=== PATIENT | male | born 1960 | race Caucasian/White ===

== ENCOUNTER 2018-03-19 10:03 | Outpatient (CLI) | payer BC ==
[2018-03-19 11:52] LABS: #Basophils 0.1 thou/uL (0.0-0.2); #Eosinphils 0.3 thou/uL (0.0-0.7); #Lymphocytes 1.5 thou/uL (1.20-3.40); #Monocytes 0.5 thou/uL (0.11-0.59); #Neutrophils 6.1 thou/uL (1.40-6.50); %Basophils 0.8 % (0.0-1.0); %Eosinophils 3.2 % (0.0-10.0); %Lymphocytes 17.9 % (21.0-51.0); %Monocytes 5.7 % (0.0-10.0); %Neutrophils 72.4 % (42.0-75.0); Hemoglobin 16.4 g/dL (14.0-18.0); Mean Corpuscular HGB CONC 33.4 g/dL (32.0-36.0); Mean Corpuscular Hemoglobin 30.8 pg (27.0-31.0); Mean Corpuscular Volume 92.3 fL (78.0-98.0); Mean Platelet Volume 7.6 fL (7.4-10.4); Platelet Count 485 thou/uL (130-400); RBC Distribution Width 12.5 % (11.5-14.5); Red Blood Cell (RBC) Count 5.33 mill/uL (4.70-6.10); White Blood Cell (WBC) Count 8.5 thou/uL (4.8-10.8)
[2018-03-19 11:54] LABS: Bilirubin Negative (Negative); Blood, Urine Negative (Negative); Clarity CLEAR (Clear); Glucose, Urine (Dipstick) Negative (Negative); Leukocyte Trace (Negative); Nitrite Negative (Negative); Protein, Urine (Dipstick) Negative (Neg-Trace); Specific Gravity, Urine 1.015 (1.002-1.036); pH, Urine 6.5 (5.0-9.0)
[2018-03-19 11:55] LABS: PTT 30.4 SEC (22.9-36.1); Prothrombin Time 13.6 SEC (12.0-14.7)
[2018-03-19 11:57] LABS: Bacteria/HPF None Seen HPF (None Seen); Hyaline Casts/LPF 0-3 HYALINE CAST LPF (0-3 Hyaline); Pathc Cast-AUWi Flag 0.14 (0-2.49); RBC/HPF 0-3 HPF (0-3); Squamous Epithelial None Seen HPF (0-3); WBC/HPF 0-3 HPF (0-3)
[2018-03-19 12:06] LABS: Anion Gap 11 mmol/L (10-20); BUN (Urea Nitrogen) 11 mg/dL (8.4-25.7); Calc. Creatinine Clearance 0 mL/min (70-130); Calcium 9.5 mg/dL (7.8-10.44); Carbon Dioxide 24 mmol/L (22-29); Chloride 107 mmol/L (98-107); Estimated GFR-MDRD 73; Glucose 87 mg/dL (70-105); Potassium 4.4 mmol/L (3.5-5.1); Sodium 138 mmol/L (136-145)
== END 2018-03-19 10:04 | disposition home or self-care (01) ==
LOC: LABBT 10:03
PROVIDERS: ATTEND Urology
DX: Z01.818 Encounter for other preprocedural examination (principal); N40.1 Benign prostatic hyperplasia with lower urinary tract symptoms
CPT/HCPCS: 80048; 81001; 85025; 85610; 85730; 87086; 93005; 93010

== ENCOUNTER 2018-03-27 12:15 | Observation (INO) | payer BC ==
[2018-03-27] MEDS ORDERED: Levofloxacin 500 mg/D5W 100 ml Premix Bag ONE (12:43)
[2018-03-27] MEDS ORDERED: Midazolam HCl 2 mg/2 ml Vial ONE ×3 (13:32→16:30)
[2018-03-27] MEDS ORDERED: Fentanyl 100 MCG/2 ML VIAL ONE ×2 (16:17→18:22)
[2018-03-27] MEDS ORDERED: Ondansetron PF 4 MG/2 ML Vial ONE (17:16)
[2018-03-27] MEDS ORDERED: ePHEDrine/0.9% NaCl/PF SYRINGE 50 mg/10 ml ONE (17:16)
[2018-03-27] MEDS ORDERED: PROPOFOL 200 MG/20 ML VIAL ONE (17:16)
[2018-03-27] MEDS ORDERED: Dexamethasone 20 MG/5 ML VIAL ONE (17:16)
[2018-03-27] MEDS ORDERED: B & O ONE (17:55)
[2018-03-27] MEDS ORDERED: Ondansetron PF 4 MG/2 ML Vial IVP PRN (18:02)
[2018-03-27] MEDS ORDERED: hydrALAZINE 20 MG/ML VIAL SLOW IVP PRN (18:02)
[2018-03-27] MEDS ORDERED: Acetaminophen 500 MG TAB PO PRN (18:02)
[2018-03-27] MEDS ORDERED: Morphine 2 MG/ML SYRINGE SLOW IVP PRN (18:02)
[2018-03-27] MEDS ORDERED: Oxybutynin 5 MG TAB PO PRN (18:02)
[2018-03-27] MEDS ORDERED: diphenhydrAMINE 25 MG CAP PO PRN (18:02)
[2018-03-27] MEDS ORDERED: Mag-Al 1200 mg/1200 mg/30 ML UDCUP PO PRN (18:02)
[2018-03-27] MEDS ORDERED: Zolpidem Tartrate 5 MG TAB PO PRN (18:02)
[2018-03-27] MEDS ORDERED: Hyoscyamine Sulfate SL 0.125 mg Tablet SL PRN (18:02)
[2018-03-27] MEDS ORDERED: Bisacodyl 10 MG SUPP PR PRN (18:02)
[2018-03-27] MEDS ORDERED: Promethazine HCl 25 MG/ML VIAL IM PRN (18:17)
[2018-03-27] MEDS ORDERED: Ondansetron HCl/PF 4 MG/2 ML Vial IVP PRN (18:17)
[2018-03-27] MEDS ORDERED: Promethazine HCl 25 MG/ML VIAL SLOW IVP PRN (18:17)
[2018-03-27] MEDS ORDERED: Atorvastatin Calcium 40 MG TAB PO SCH (21:00)
[2018-03-27] MEDS ORDERED: Lisinopril 20 MG TAB PO SCH (21:00)
[2018-03-27] MEDS: Docusate 100 MG CAP PO SCH (21:19)
[2018-03-27] MEDS: traMADol HCl 50 MG TAB PO PRN (23:31)
[2018-03-28 01:05] VITALS: BMI 37.0
[2018-03-28 04:43] LABS: #Lymphocytes 0.6 thou/uL (1.20-3.40); #Monocytes 0.3 thou/uL (0.11-0.59); #Neutrophils 7.7 thou/uL (1.40-6.50); %Eosinophils 0.1 % (0.0-10.0); %Lymphocytes 6.7 % (21.0-51.0); %Monocytes 3.3 % (0.0-10.0); Hemoglobin 15.4 g/dL (14.0-18.0); Mean Corpuscular HGB CONC 33.7 g/dL (32.0-36.0); Mean Corpuscular Volume 91.9 fL (78.0-98.0); Mean Platelet Volume 7.1 fL (7.4-10.4); Platelet Count 451 thou/uL (130-400); RBC Distribution Width 12.5 % (11.5-14.5); Red Blood Cell (RBC) Count 4.98 mill/uL (4.70-6.10); White Blood Cell (WBC) Count 8.5 thou/uL (4.8-10.8)
[2018-03-28 04:59] LABS: Anion Gap 11 mmol/L (10-20); BUN (Urea Nitrogen) 12 mg/dL (8.4-25.7); Calc. Creatinine Clearance 112 mL/min (70-130); Calcium 9.1 mg/dL (7.8-10.44); Carbon Dioxide 27 mmol/L (22-29); Chloride 105 mmol/L (98-107); Estimated GFR-MDRD 60; Glucose 199 mg/dL (70-105); Potassium 4.3 mmol/L (3.5-5.1); Sodium 139 mmol/L (136-145)
[2018-03-28] MEDS: traMADol HCl 50 MG TAB PO PRN ×2 (05:48→08:54)
[2018-03-28] MEDS: Docusate 100 MG CAP PO SCH (08:36)
[2018-03-28] MEDS ORDERED: Phenazopyridine HCl 97.5 MG TABLET PO PRN (09:06)
[2018-03-28 12:18] VITALS: BP 185/91; TEMP 97.8
--- NOTE | 2018-03-28 17:43 | OP ---
DATE OF PROCEDURE: 03/27/2018 SERVICE: Urology. PREOPERATIVE DIAGNOSIS: Benign prostatic hyperplasia with lower urinary tract symptoms. POSTOPERATIVE DIAGNOSIS: Benign prostatic hyperplasia with lower urinary tract symptoms. PROCEDURE PERFORMED: Transurethral vaporization of the prostate. INDICATIONS FOR PROCEDURE: Mr. Weaver is a 58-year-old while male, who presented to co from a transfer from Dr. Silva, for BPH and urinary symptoms. Dr. Silva had planned to do a transurethral resection of the prostate on the patient as he is already on Flomax without any significant improvement in his urinary symptoms and does not wish to be on medications indefinitely. He does have typical obstructive symptoms. He did not want to undergo a traditional TURP, but elected for vaporization, at which time he was transferred to co. After discussion of all risks and benefits of surgery, he is elected to proceed forward with transurethral vaporization of the prostate. DESCRIPTION OF PROCEDURE: After identification of arm band and verification of consent, the patient was brought back to the operating room, where he underwent general anesthesia with an LMA. He was placed in dorsal lithotomy position and prepped and draped in the usual sterile fashion. After appropriate time-out, a lubricated 26-Indonesian resectoscope sheath with visual obturator was placed through the urethra into the bladder. The prostate was hypertrophic, but did not demonstrate any significant intravesical extension or any extremely large median lobe. Prostate length was approximately 4 cm. Both ureteral orifices were in close proximity to the bladder neck, but were otherwise normal with clear efflux. The bladder did not demonstrate any diverticula or cellules, but had grade 1 trabeculation and the mucosa was otherwise normal. There were no bladder calculi. The visual obturator was then switched out for the bipolar Gyrus button for vaporization. The vaporization process was started at the bladder neck and worked circumferentially out toward the apex of the prostate starting with the lateral lobes first, then the posterior aspect, then last the anterior aspect. Vaporization was carried out too close to the capsule, but not into the capsule itself. Upon completion, the prostate was wide open. Relaxing incisions were made at 5 and 7 o'clock with the bladder fully distended to move the ureteral orifices away from the bladder neck. To further open the bladder neck, the intervening tissue was then vaporized. Meticulous hemostasis was then performed with a coag function on the button and once completed, there appeared to be excellent hemostasis with very minimal bleeding. The bladder was left full, and the resectoscope was removed. A 22-Indonesian 3-way Kahn catheter with 30 mL of sterile water placed into the balloon, it was then inserted into the bladder with CBI initiated. B and O suppository was placed in the patient's rectum. He was then taken out of lithotomy, awakened and taken to PACU for recovery in stable condition. COMPLICATIONS: None. ESTIMATED BLOOD LOSS: Minimal. Retained tubes and drains and 22-Indonesian 3-way Kahn catheter on CBI. SPECIMENS: None. DISPOSITION: The patient will be kept in the hospital overnight with CBI. We will plan a void trial in the morning and then subsequent discharge pending with adequate void trial with clear urine. Job ID: [id number]
--- NOTE | 2018-03-29 07:39 | OP ---
DATE OF PROCEDURE: 03/27/2018 SERVICE: Urology. PREOPERATIVE DIAGNOSIS: Benign prostatic hyperplasia with urinary symptoms. POSTOPERATIVE DIAGNOSIS: Benign prostatic hyperplasia with urinary symptoms. PROCEDURE PERFORMED: Transurethral vaporization of the prostate. INDICATIONS FOR PROCEDURE: Mr. Weaver is a 58-year-old white male, who presented to me with BPH and urinary symptoms. He had previously seen Dr. Silva who performed a cystoscopy, which demonstrated trilobar hypertrophy. He has already been on medication and does not wish to remain on medication indefinitely, and states his symptoms are not fully treated. After a thorough discussion, he was elected to go with transurethral vaporization of the prostate with all risks and benefits discussed, and he has agreed to proceed forward. DESCRIPTION OF PROCEDURE: After identification and arm band verification of consent, the patient was brought back to the operating room, where he underwent general anesthesia with an LMA. He was then placed in the dorsal lithotomy position and prepped and draped in usual sterile fashion. After appropriate time-out, a lubricated 26-Malawian visual obturator resectoscope sheath was placed through the urethra into the bladder. Full cystoscopy was performed, which demonstrated a normal, mildly trabeculated bladder with no lesions or bladder stones and no diverticulum or cellules noted. Both ureters were in the orthotopic location and unharmed without any problems. The prostate was hypertrophic in the lateral lobes and median lobe, probably 4 cm in length. The visual obturator was then switched out for the bipolar button electrode for vaporization. Using the vaporization function, vaporization was carried out from the bladder neck to the verumontanum circumferentially until we were close to, but not through the capsule. The prostate was very wide open upon completion of vaporization. Relaxing incisions were made at 5 o'clock and 7 o'clock on the bladder neck taking great care to avoid any injury to the ureteral orifices, and the intervening tissue vaporized. Any minor tissues that we were treating out were then vaporized and meticulous hemostasis was then performed. Bladder was then emptied and slowly refilled, inspecting the prostate and bladder neck to ensure that there were no additional bleeders. Any small bleeders that were identified were cauterized until there was no bleeding seen whatsoever. The bladder was then filled and the resectoscope removed. The patient had a 22-Malawian three-way Kahn catheter placed into his bladder through the urethra with 30 mL of sterile water placed into the balloon. CBI was initiated and the catheter was secured to the patient's leg with a StatLock. He was then taken out of lithotomy, awakened, and taken to the PACU for recovery in stable condition. B and O suppository were placed in the patient's rectum prior to being awakened. COMPLICATIONS: None. ESTIMATED BLOOD LOSS: Minimal. RETAINED TUBES AND DRAINS: A 22-Malawian three-way Kahn catheter on CBI. SPECIMENS: None. DISPOSITION: He will be kept in the hospital for CBI and monitored overnight with void trial in the morning and then discharged home. Job ID: [id number]
--- NOTE | 2018-03-29 14:23 | DIS ---
DATE OF ADMISSION: 03/27/2018 DATE OF DISCHARGE: 03/28/2018 ADMITTING PHYSICIAN: Rehan Stafford MD DISCHARGING PHYSICIAN: Rehan Stafford MD ADMITTING DIAGNOSIS: Benign prostatic hypertrophy. DISCHARGE DIAGNOSIS: Benign prostatic hypertrophy. PROCEDURE PERFORMED: Transurethral vaporization of the prostate. BRIEF HISTORY: Mr. Weaver is a 58-year-old white male with BPH and urinary symptoms. He initially is seeing Dr. Silva and had been recommended for a TURP, as he has not had adequate relief on medical therapy alone. He wanted to go with a different modality of treatment rather than standard TURP; therefore, he was referred to me for transurethral vaporization of the prostate. After a thorough discussion, he is elected to proceed forward with surgery. Risks and benefits have been discussed and the full H and P can be found in the scanned portion of the [employer] system. HOSPITAL COURSE: After surgery (please see operative note for details), the patient was kept in the hospital overnight for CBI and monitoring. His urine remained relatively clear and his CBI was stopped the next morning with his catheter removed. He was able to successfully void without excessively bloody urine. His symptoms were controlled and he was able to be discharged home after discussing all of his postop instructions. DISPOSITION: Discharged to home. DISCHARGE CONDITION: Good. DISCHARGE MEDICATIONS: Please see MAR. DISCHARGE INSTRUCTIONS: Include no heavy lifting. No strenuous activity. Avoiding constipation. Drink plenty of water. He should notify me for fevers over 101, inability to void, heavy bleeding or any other concerning signs or symptoms he may have. FOLLOWUP: Will be in approximately 1 week for a postop check. Job ID: [id number]
== END 2018-03-28 16:31 | disposition home or self-care (01) ==
LOC: SDC 12:15 → SURG B 18:02
PROVIDERS: ADMIT Urology; ATTEND Urology
PROC: 0VT08ZZ Resection of Prostate, Via Natural or Artificial Opening Endoscopic (ICD-10-PCS; principal; 2018-03-27)
DX: N40.1 Benign prostatic hyperplasia with lower urinary tract symptoms (principal); R35.0 Frequency of micturition; R39.15 Urgency of urination; R39.12 Poor urinary stream; E78.00 Pure hypercholesterolemia, unspecified; F17.290 Nicotine dependence, other tobacco product, uncomplicated; Z79.899 Other long term (current) drug therapy; Z98.1 Arthrodesis status
CPT/HCPCS: 36415; 80048; 85025; 96374; 96375; 96376; G0378; J1100; J1956; J2250; J2270; J2405; J2704; J3010